=== PATIENT | male | born 1950 | race Caucasian/White ===

== ENCOUNTER 2017-12-25 07:41 | Day surgery (SDC) | payer OTHER ==
[2017-12-20 15:50] VITALS: BMI 30.7
[2017-12-25] MEDS ORDERED: CELECOXIB 200 MG CAPSULE PO ONE (07:57)
[2017-12-25] MEDS ORDERED: ROPIVICAINE 0.2%/MORPH PF/KETOROLAC - 51ML DISP.SYRINGE IA ONE ×2 (07:57→11:29)
[2017-12-25] MEDS ORDERED: CEFAZOLIN 1 GM/D5W 1 GRAM/50 ML BAG IVPB ONE (07:57)
[2017-12-25] MEDS ORDERED: oxyCODONE HCL 10 MG SUSTAINED ACTING TABLET PO ONE (07:57)
[2017-12-25] MEDS ORDERED: TRANEXAMIC ACID 1000 MG/10 ML VIAL IVPUSH ONE (07:57)
[2017-12-25] MEDS ORDERED: GABAPENTIN 300 MG CAPSULE (FP) PO ONE (07:57)
[2017-12-25] MEDS ORDERED: DEXAMETHASONE SOD PHOSPHATE/PF 10 MG/ML SDV ONE (08:53)
[2017-12-25] MEDS ORDERED: MIDAZOLAM HCL 2 MG/2 ML SINGLE DOSE VIAL ONE (08:53)
[2017-12-25] MEDS ORDERED: BUPIVACAINE HCL/PF (5 MG/ML) 30 ML VIAL IJ ONE (08:53)
[2017-12-25] MEDS ORDERED: ONDANSETRON 4 MG/2 ML VIAL IVPUSH PRN ×2 (09:34→12:07)
[2017-12-25] MEDS ORDERED: oxyCODONE HCL 5 MG TABLET PO PRN ×2 (09:34→09:35)
[2017-12-25] MEDS ORDERED: ACETAMINOPHEN 325 MG TABLET (FP) PO SCH (09:45)
[2017-12-25] MEDS ORDERED: LACTATED RINGERS SOLUTION 1,000 ML IV SCH ×2 (09:45→12:15)
[2017-12-25] MEDS ORDERED: TRANEXAMIC ACID 1000 MG/10 ML VIAL ONE (10:29)
[2017-12-25] MEDS ORDERED: DEXAMETHASONE SOD PHOSPHATE 4 MG/1 ML VIAL ONE (10:29)
[2017-12-25] MEDS ORDERED: ceFAZolin SODIUM 1 GM VIAL ONE (10:29)
[2017-12-25] MEDS ORDERED: ONDANSETRON 4 MG/2 ML VIAL ONE (10:29)
[2017-12-25] MEDS ORDERED: THROMBIN (BOVINE) 5,000 UNIT VIAL TP ONE (10:46)
[2017-12-25] MEDS ORDERED: GELATIN, ABSORBABLE 100 EACH SPONGE TP ONE (10:46)
[2017-12-25] MEDS ORDERED: MAG HYDROX/AL HYDROX/SIMETH 30 ML UNIT-DOSE CUP PO PRN (12:07)
--- NOTE | 2017-12-25 12:13 | OP ---
Operative Note - Note: Operative Date: 12/25/17 Pre-Operative Diagnosis: Right knee osteoarthritis Operation: Right partial knee arthroplasty Post-Operative Diagnosis: Same as Pre-op Surgeon: Brando Fisher Zipper Joiner: Fredo Manley Anesthesia: Spinal Estimated Blood Loss (mls): 100 Fluid Volume Replaced (mls): 1,000 Operative Report Dictated: Yes
--- NOTE | 2017-12-25 12:14 | SURG ---
Surgery Clinical Trial Leader Note Clinical Trial Leader: Fredo Manley PA-C Date of Service: 12/25/17 Diagnosis: Left knee osteoarthritis Procedure: Left knee partial arthroplasty I was present for the entirety of the operative procedure. For further detail, please refer to operative report.
--- NOTE | 2017-12-25 15:37 | SPEC ---
DATE OF OPERATION: DATE OF DICTATION: 12/25/2017 PREOPERATIVE DIAGNOSIS: Degenerative joint disease, left knee. POSTOPERATIVE DIAGNOSIS: Degenerative joint disease, left knee. PROCEDURE: Left medial unicompartmental knee replacement with robotic-assisted navigation (MAKOplasty) and patelloplasty. SURGICAL ATTENDING: Brando Fisher MD UTILITY BAG ASSEMBLER: Hawa Chavez ANESTHESIA: Regional and spinal. CLOSURE: Medial NATI components with a 4 femur, 5 tibia, and an 8 polyethylene; No. 1 Vicryl, fascia; 0 and 2-0, subcutaneous; 3-0 Monocryl subcuticular with skin glue for skin; 4-0 undyed Vicryl for pin sites. ESTIMATED BLOOD LOSS: Negligible. COMPLICATIONS: None. CONDITION: To recovery in stable condition. DESCRIPTION OF OPERATIVE PROCEDURE: Patient was taken to the operating room on December 25, 2017. Spinal and regional anesthesia was administered by the anesthesiologist. IV Kefzol and TXA were administered prophylactically prior to the case. A well-padded pneumatic tourniquet was placed on the left proximal thigh. The left lower extremity was prepped and draped in the usual sterile fashion. A 6- to 8-cm longitudinal incision over the medial side of the patella from mid patella to the tibial tubercle was incised and was deepened using Bovie cautery. An arthrotomy was then made just medial to the patellar tendon and the patella. Subperiosteal dissection was done on the anteromedial proximal tibia all the way back to the MCL. Partial fat pad excision was performed, exposing the medial compartment. Checkpoint was malleable at both the femur and the tibia. Using 2 stab incisions in the femur 1 handbreadth above the patella on the femur and 2 stab incisions 1 handbreadth below the tibial tubercle on the tibia, 2 threaded pins were drilled in parallel fashion from anterior to posterior, going through the proximal cortex and engaging the 2nd but not through the 2nd cortex. To these threaded pins were fastened navigation rays, 1 on the femur and 1 on the tibia. The knee was then registered with the navigation device with the center of the rotation of the hip, medial and lateral malleoli, and multiple points both on the femur and on the tibia. Excellent registration of less than 0.5 mm was obtained on both to ensure adequate registration. The navigation device ensured us to "pop the bubbles" both on the femur and the tibia and that was performed and passed registration. The knee was then thoroughly inspected to remove all osteophytes both on the femur and the tibia. Also, osteophytes on the trochlea and on the surface of the patella were removed as well. The knee was then stressed with valgus stress at 0, 30, 60, 90, and 120 degrees of flexion. This propagated a looseness/tightness graft. The virtual positions of the components were then optimized to ensure an excellent graft. The tracking also was optimized by manipulating the virtual position to ensure that the femoral component articulated with the central portion of the tibial component. The robot was then brought into the field and was registered. The robot was used to bur the bone on both the femur and the tibia as to the specifications of the components. The trial components were then applied on both the femur and the tibia with an appropriate polyethylene insert. The knee was taken through a range of motion and found to have full extension, full flexion, with excellent stability. Stressing the graft revealed an excellent looseness/tightness graft with the trial components in place. The trial components were removed. The knee was thoroughly irrigated with a copious amount of antibiotic irrigation. The real components were then cemented in using modern generation cement techniques with antibiotic cement and pressurization. After the cement was hardened, the knee was thoroughly inspected to remove out all excess cement. The real polyethylene insert was then clipped into place. Range of motion and stability were again assessed to be as they were with the trials. At this time, the pins and the checkpoints were removed. The knee was again thoroughly irrigated. The arthrotomy was closed with No. 1 Vicryl, 0 and 2-0 subcutaneous, and 3-0 Monocryl subcuticular with skin glue for the skin, 4-0 undyed Vicryl for the pin sites. Sterile pressure dressing was placed over the knee. Patient awakened from anesthesia and transferred to recovery in stable condition. No complications. Estimated blood loss negligible. X-rays postoperatively revealed excellent position of the components. Amanda [id number]
[2017-12-25] MEDS: CEFAZOLIN 1 GM/D5W 1 GRAM/50 ML BAG IVPB SCH (18:00)
[2017-12-25] MEDS: ACETAMINOPHEN 325 MG TABLET (FP) PO SCH (20:00)
[2017-12-25] MEDS: oxyCODONE HCL 10 MG SUSTAINED ACTING TABLET PO SCH (21:53)
[2017-12-25] MEDS: SENNOSIDES/DOCUSATE COMBO (SENNA PLUS) TABLET (UD) PO SCH (21:53)
[2017-12-25] MEDS: GABAPENTIN 300 MG CAPSULE (FP) PO SCH (21:53)
[2017-12-25] MEDS ORDERED: GABAPENTIN 300 MG CAPSULE (FP) PO SCH (22:00)
[2017-12-26] MEDS: CEFAZOLIN 1 GM/D5W 1 GRAM/50 ML BAG IVPB SCH (02:00)
[2017-12-26] MEDS: ACETAMINOPHEN 325 MG TABLET (FP) PO SCH ×3 (03:28→13:30)
[2017-12-26] MEDS ORDERED: ASPIRIN 325 MG TABLET PO SCH (08:00)
[2017-12-26 08:22] LABS: HEMATOCRIT 37.3 % (35.4-49); HEMOGLOBIN 13.1 GM/dl (11.7-16.9); MCHC 35.2 g/dl (32.0-35.9); MEAN CELL VOLUME 85.2 fl (80-96); MEAN PLT VOLUME 9.4 fl (7.5-11.1); PLATELET COUNT 197 K/MM3 (134-434); RBC 4.38 M/mm3 (4.00-5.60); RDW 13.4 % (11.9-15.9); WHITE BLOOD COUNT 13.4 K/mm3 (4.0-10.8)
[2017-12-26] MEDS: GABAPENTIN 300 MG CAPSULE (FP) PO SCH ×2 (08:28→10:36)
[2017-12-26 08:35] LABS: ANION GAP 4 (8-16); BLOOD UREA NITROGEN 22 mg/dl (7-18); CALCIUM 8.1 mg/dl (8.4-10.2); CHLORIDE 107 mmol/L (98-107); CO2 25 mmol/L (22-28); CREATININE 0.9 mg/dl (0.6-1.3); GLUCOSE,RANDOM 89 mg/dl (74-106); POTASSIUM 4.4 mmol/L (3.5-5.1); SODIUM 136 mmol/L (136-145)
--- NOTE | 2017-12-26 09:36 | PN ---
Progress Note (short form) - Note Progress Note: Anesthesia Postop 67 yo male POD#1 s/p partial knee replacement under spinal anesthesia with peripheral nerve blocks. Doing well. Actively participating in PT. Ambulating. Tolerating PO. Pain adequately controlled. Motor function intact. VSS, Afebrile Encouraged IS. No anesthetic complications. Continue current care.
[2017-12-26] MEDS ORDERED: COLCHICINE 0.6 MG TABLET (FP) PO SCH (10:00)
[2017-12-26] MEDS ORDERED: MULTIVITAMINS (DAILY MVI) TABLET (FP) PO SCH (10:00)
[2017-12-26] MEDS ORDERED: PANTOPRAZOLE 40 MG TABLET (FP) PO SCH (10:00)
[2017-12-26] MEDS ORDERED: VALSARTAN 160 MG TABLET (UD) PO SCH (10:00)
[2017-12-26] MEDS: SENNOSIDES/DOCUSATE COMBO (SENNA PLUS) TABLET (UD) PO SCH (10:36)
[2017-12-26] MEDS: oxyCODONE HCL 10 MG SUSTAINED ACTING TABLET PO SCH (10:44)
--- NOTE | 2017-12-26 12:35 | PN ---
Progress Note (short form) - Note Progress Note: AVSS COMFORTABLE BANDAGES DRY AND INTACT CALF SOFT AND NT NVI AROM 0-90 + STRAIGHT LEG RAISE ABILITY HCT=WNL IMP: DOING WELL PLAN: PT, OOB, DC TODAY
[2017-12-26 14:34] VITALS: BP 102/48; PULSE 68; TEMP 97.7
== END 2017-12-26 18:20 | disposition home health service (06) ==
LOC: FASUSAT 07:41 → FM/S 07:57 → FASUSAT 12-26 18:20
PROVIDERS: ATTEND Orthopaedic Surgery
PROC: 8E0YXBZ Computer Assisted Procedure of Lower Extremity (ICD-10-PCS; 2017-12-25)
PROC: 8E0Y0CZ Robotic Assisted Procedure of Lower Extremity, Open Approach (ICD-10-PCS; 2017-12-25)
PROC: 0SRD0L9 Replacement of Left Knee Joint with Medial Unicondylar Synthetic Substitute, Cemented, Open Approach (ICD-10-PCS; principal; 2017-12-25 09:30)
DX: M17.12 Unilateral primary osteoarthritis, left knee (principal)
CPT/HCPCS: 20985; 27446; C1776; S2900; 36415; 73560-TC-LT-FY; 80048; 85027; 94760; 97116-GP; 97162-GP

== ENCOUNTER 2018-03-26 06:43 | Inpatient (IN) | payer OTHER ==
[2018-03-19 13:46] VITALS: BMI 26.5
[2018-03-26] MEDS ORDERED: SODIUM CHLORIDE 0.9% P/F 10 ML VIAL IJ ONE ×2 (06:45→09:10)
[2018-03-26] MEDS ORDERED: MIDAZOLAM HCL 2 MG/2 ML SINGLE DOSE VIAL ONE ×3 (06:45→08:41)
[2018-03-26] MEDS ORDERED: BUPIVACAINE LIPOSOME/PF (EXPAREL) 266 MG/20 ML VIAL ONE (06:45)
[2018-03-26] MEDS ORDERED: GABAPENTIN 300 MG CAPSULE (FP) PO ONE (07:00)
[2018-03-26] MEDS ORDERED: oxyCODONE HCL 10 MG SUSTAINED ACTING TABLET PO ONE (07:00)
[2018-03-26] MEDS ORDERED: TRANEXAMIC ACID 1000 MG/10 ML VIAL IVPUSH ONE (07:00)
[2018-03-26] MEDS ORDERED: CEFAZOLIN 2 GM in DEXTROSE 5%-WATER - 50 ML IVPB ONE (07:00)
[2018-03-26] MEDS ORDERED: CELECOXIB 200 MG CAPSULE PO ONE (07:00)
[2018-03-26] MEDS ORDERED: SUCCINYLCHOLINE CHLORIDE 200 MG/10 ML VIAL ONE (07:08)
[2018-03-26] MEDS ORDERED: PROPOFOL 20 ML ONE ×3 (07:08)
[2018-03-26] MEDS ORDERED: BUPIVACAINE HCL/PF 0.5% (5MG/ML) 10 ML VIAL ONE (07:12)
[2018-03-26] MEDS ORDERED: ceFAZolin SODIUM 1 GM VIAL ONE ×2 (07:44→08:20)
[2018-03-26] MEDS ORDERED: VANCOMYCIN 1,000 MG VIAL (RESTRICTED TO ID ONLY) ONE (07:44)
--- NOTE | 2018-03-26 07:56 | HP ---
Satellite [facility] - Chief Complaint Chief Complaint: right knee pain - Past Medical History Allergies/Adverse Reactions: Allergies Allergy/AdvReac Type Severity Reaction Status Date / Time No Known Allergies Allergy Verified 03/26/18 07:05 - Current Medications Current Medications: Home Medications Medication Instructions Recorded Aspirin Coated [Ecotrin -] 81 mg PO DAILY 03/19/18 Ferrous Sulfate 325 mg PO DAILY 03/19/18 Furosemide [Lasix] 20 mg PO PRN PRN 03/19/18 Losartan Potassium 100 mg PO DAILY 03/19/18 Satellite Physical Exam - Physical Examination Vital Signs: Vital Signs Period Temp Pulse Resp BP Sys/Sheppard Pulse Ox Last 24 Hr 98.4 F 84 16 159/97 97 General Appearance: Well Nourished, Well Developed, Alert & Oriented x3 ENT: Clear Lung: Normal air movement Heart: Regular rate & rhythm Extremities: Other (right knee- + swelling, + ttp, decr rom, nvi xrays show grade 4 tricompartmental djd) Neurological: Intact, Alert, Oriented Satellite Impression/Plan - Impression/Plan Impression: right knee djd Operative Procedure: right bright tkr Date to be Performed: 03/26/18
[2018-03-26] MEDS ORDERED: TRANEXAMIC ACID 1000 MG/10 ML VIAL ONE ×2 (08:20)
[2018-03-26] MEDS ORDERED: ONDANSETRON 4 MG/2 ML VIAL ONE (08:29)
[2018-03-26] MEDS ORDERED: DEXAMETHASONE SOD PHOSPHATE 4 MG/1 ML VIAL ONE (08:29)
[2018-03-26] MEDS ORDERED: PATIENT'S OWN MEDICATION (NON-FORMULARY) (Ferrous Sulfate [Ferrous Sulfate] 325 MG) PO SCH (10:00)
[2018-03-26] MEDS ORDERED: PATIENT'S OWN MEDICATION (NON-FORMULARY) (Losartan Potassium [Losartan Potassium] 100 MG) PO SCH (10:00)
[2018-03-26] MEDS ORDERED: MAGNESIUM HYDROX 2400MG/30ML ORAL SUSPENSION 30 ML CUP PO PRN (10:00)
[2018-03-26] MEDS ORDERED: FUROSEMIDE 20 MG TABLET (FP) PO PRN (10:00)
[2018-03-26] MEDS ORDERED: MAG HYDROX/AL HYDROX/SIMETH 30 ML UNIT-DOSE CUP PO PRN (10:00)
[2018-03-26] MEDS ORDERED: ONDANSETRON 4 MG/2 ML VIAL IVPUSH PRN ×2 (10:00→10:39)
[2018-03-26] MEDS ORDERED: LACTATED RINGERS SOLUTION 1,000 ML IV SCH (10:00)
--- NOTE | 2018-03-26 10:02 | OP ---
Operative Note - Note: Operative Date: 03/26/18 (evaristo) Pre-Operative Diagnosis: right knee djd Operation: right bright tkr Post-Operative Diagnosis: Same as Pre-op Surgeon: Brando Fisher Documentation Specialist: Vipin Pineda Anesthesiologist/DESIGN/ANIMATION INSTRUCTOR: Agustin Ac Anesthesia: Spinal, Local Specimens Removed: bone fragments Estimated Blood Loss (mls): 150 Operative Report Dictated: Yes
[2018-03-26] MEDS ORDERED: PROMETHAZINE HCL 25 MG/1 ML VIAL IVPUSH PRN (10:39)
[2018-03-26] MEDS ORDERED: oxyCODONE HCL 5 MG TABLET PO PRN (10:39)
[2018-03-26] MEDS ORDERED: ACETAMINOPHEN 325 MG TABLET (FP) ONE (10:44)
[2018-03-26] MEDS ORDERED: ACETAMINOPHEN 325 MG TABLET (FP) PO ONE (10:51)
[2018-03-26] MEDS: ACETAMINOPHEN 325 MG TABLET (FP) PO SCH ×2 (12:55→18:14)
--- NOTE | 2018-03-26 13:38 | SPEC ---
DATE OF OPERATION: 03/26/2018 PREOPERATIVE DIAGNOSIS: Degenerative joint disease, right knee. POSTOPERATIVE DIAGNOSIS: Degenerative joint disease, right knee. PROCEDURE: Right total knee replacement with robotic-assisted navigation (MAKOplasty). SURGICAL ATTENDING: Brando Fisher MD BOTTLE CAPPING MACHINE OPERATOR: KLEVER Guerrero ANESTHESIA: Regional and spinal. CLOSURE: A Press-Fit Triathlon knee system with a 4 femur, 5 tibia, a 35 patella; 9 polyethylene, No. 1 Vicryl fascia; 0 and 2-0 for subcutaneous; and 3-0 Monocryl subcuticular with skin glue for skin; 4-0 undyed Vicryl for pin sites. ESTIMATED BLOOD LOSS: Less than 100 mL. COMPLICATIONS: None. CONDITION: To recovery room in stable condition. DESCRIPTION OF OPERATIVE PROCEDURE: Patient was taken to the operating room on March 26, 2018. Regional and spinal anesthesia was administered by the anesthesiologist. IV Kefzol was administered prophylactically prior to the case as well as TXA. The right lower extremity was prepped and draped in the usual sterile fashion. The midline 10- to 12-cm longitudinal incision was made. Hemostasis was achieved with Bovie cautery. Sharp dissection was carried down to the extensor mechanism which was perform the procedure. Medial parapatellar arthrotomy was then performed, leaving a cuff of tissue for later closure. The patella was inverted and the knee was flexed up. The fat pad was excised. Subperiosteal dissection was done on the anteromedial proximal tibia until the knee was able to be brought forward. This was facilitated by taking the ACL, PCL and medial and lateral menisci. Checkpoints were placed in both the femur and in the tibia. Two parallel threaded pins were drilled superior to the knee joint through the already made incision from anterior to posterior just going through the anterior cortex but just engaging but not going through the posterior cortex. Two threaded pins were drilled through 2 small stab incisions in parallel fashion 1 handbreadth below the tibial tubercle through the anterior cortex of the tibia and engaging but not going through the posterior cortex. Both sets of pins were attached to navigation arrays for the NATI system. The knee was then registered with the navigation system with center of rotation of the hip, medial and lateral malleoli and multiple sites both on the tibia and on the femur. Confirmation of excellent registration was confirmed by "popping the bubbles." At this time, the knee was thoroughly inspected to remove all osteophytes around the knee. The knee was then tensioned in varus/valgus at both full extension and at 90 degrees of flexion to ascertain our gaps. The virtual position of the components was optimized to ensure equal gaps throughout the range of motion. Once this was performed, the robot was brought into the field, was registered. The bone was cut as per the specifications on both the tibia and on the femur. The box cuts were then made as well. Excellent trial stability was obtained on the femur. The tibial baseplate was allowed to "find itself" and then was clipped into place. Confirmation of excellent external rotation of that component was confirmed by the navigation device as well.The patella was calibered for thickness and cut at the appropriate level. The appropriate lollipop was used to drill 3 holes in the patella and a trial asymmetric patellar button was applied. The knee was taken through a range of motion and found to have excellent stability from full extension to full flexion with excellent tracking of the patella. The trial components were then removed. The lug holes were drilled in the femur. The cementless keel was punched in the tibia. The real Press-Fit components were malleted into place, first with the tibia and then with the femur, and then the patella was crimped into place as well. The real polyethylene liner was then clipped into place. Range of motion, stability and tracking were as described earlier. The knee was thoroughly irrigated with copious amounts of irrigation. Vancomycin powder was placed inside the joint. The medial parapatellar arthrotomy was then closed using No. 1 Vicryl interrupted suture. Post closure of the arthrotomy, the knee was taken through a range of motion and found to have no undue tension on the repair. The subcutaneous was then pulse antibiotic irrigated, closed with 0 and 2-0 Vicryl and 3-0 Monocryl subcuticular with skin glue for the skin. Prior to closure, the checkpoints were removed as were the threaded pins. The tibial pin sites were closed with 4-0 undyed Vicryl. A sterile pressure Aquacel dressing was applied. No tourniquet was used during the case. The total blood loss was approximately 100 mL. No complication. Patient was transferred to recovery in stable condition. Amanda [id number]
[2018-03-26] MEDS: oxyCODONE HCL 5 MG TABLET PO PRN (15:13)
[2018-03-26] MEDS: CEFAZOLIN 2 GM/D5W 2 GM/50 ML ML IVPB SCH (15:13)
[2018-03-26] MEDS: SENNOSIDES/DOCUSATE COMBO (SENNA PLUS) TABLET (UD) PO SCH ×2 (18:13→21:35)
[2018-03-26] MEDS: PANTOPRAZOLE 40 MG TABLET (FP) PO SCH (18:13)
[2018-03-26] MEDS: MULTIVITAMINS (DAILY MVI) TABLET (FP) PO SCH (18:13)
[2018-03-26] MEDS: oxyCODONE HCL 10 MG SUSTAINED ACTING TABLET PO SCH (21:36)
[2018-03-27] MEDS: CEFAZOLIN 2 GM/D5W 2 GM/50 ML ML IVPB SCH (00:42)
[2018-03-27] MEDS: ACETAMINOPHEN 325 MG TABLET (FP) PO SCH ×4 (00:43→17:22)
[2018-03-27] MEDS: oxyCODONE HCL 5 MG TABLET PO PRN ×5 (00:46→21:15)
[2018-03-27] MEDS: ASPIRIN 325 MG TABLET PO SCH (08:00)
[2018-03-27 08:24] LABS: HEMATOCRIT 34.5 % (35.4-49); HEMOGLOBIN 11.2 GM/dl (11.7-16.9); MCH 28.3 pg (25.7-33.7); MCHC 32.5 g/dl (32.0-35.9); MEAN PLT VOLUME 9.2 fl (7.5-11.1); PLATELET COUNT 189 K/MM3 (134-434); RBC 3.96 M/mm3 (4.00-5.60); RDW 14.1 % (11.9-15.9)
--- NOTE | 2018-03-27 10:11 | PN ---
Progress Note (short form) - Note Progress Note: Ortho Pt seen and examined s/p right bright tkr pod #1 Selected Entries 03/26/18 21:57 Temperature 98.8 F Pulse Rate 80 Respiratory 18 Rate Blood Pressure 121/59 L Laboratory Tests 03/27/18 07:05 WBC 8.0 Hgb 11.2 L Hct 34.5 L Plt Count 189 dressing c/d/i, calf soft, nt rom 0-30, nvi a/p PT dvt ppx pain control d/c home tomorrow if stable
[2018-03-27] MEDS: PANTOPRAZOLE 40 MG TABLET (FP) PO SCH (10:19)
[2018-03-27] MEDS: MULTIVITAMINS (DAILY MVI) TABLET (FP) PO SCH (10:19)
[2018-03-27] MEDS: SENNOSIDES/DOCUSATE COMBO (SENNA PLUS) TABLET (UD) PO SCH ×2 (10:19→21:14)
[2018-03-27] MEDS: LOSARTAN POTASSIUM 50 MG TABLET (FP) PO SCH (10:19)
[2018-03-27] MEDS: FERROUS SO4 325 MG TABLET (FP) PO SCH (10:19)
[2018-03-27] MEDS: oxyCODONE HCL 10 MG SUSTAINED ACTING TABLET PO SCH ×2 (10:20→21:14)
[2018-03-28] MEDS: ACETAMINOPHEN 325 MG TABLET (FP) PO SCH ×4 (00:25→17:38)
[2018-03-28] MEDS: oxyCODONE HCL 5 MG TABLET PO PRN ×2 (05:58→21:53)
[2018-03-28 08:09] LABS: HEMATOCRIT 32.3 % (35.4-49); HEMOGLOBIN 11.4 GM/dl (11.7-16.9); MCH 30.5 pg (25.7-33.7); MCHC 35.2 g/dl (32.0-35.9); MEAN CELL VOLUME 86.6 fl (80-96); MEAN PLT VOLUME 9.4 fl (7.5-11.1); PLATELET COUNT 168 K/MM3 (134-434); RBC 3.73 M/mm3 (4.00-5.60); RDW 14.1 % (11.9-15.9); WHITE BLOOD COUNT 8.1 K/mm3 (4.0-10.8)
--- NOTE | 2018-03-28 08:23 | PN ---
Progress Note (short form) - Note Progress Note: Ortho Pt seen and examined s/p right bright tkr pod #2 Selected Entries 03/28/18 06:00 Temperature 98.4 F Pulse Rate 88 Respiratory 18 Rate Blood Pressure 145/56 L Laboratory Tests 03/28/18 07:37 WBC Pending Hgb Pending Hct Pending Plt Count Pending dressing c/d/i, calf soft, nt rom 0-30, nvi a/p PT dvt ppx pain control d/c home tomorrow if stable
[2018-03-28] MEDS: ASPIRIN 325 MG TABLET PO SCH (08:24)
[2018-03-28] MEDS: SENNOSIDES/DOCUSATE COMBO (SENNA PLUS) TABLET (UD) PO SCH ×2 (09:12→21:54)
[2018-03-28] MEDS: FERROUS SO4 325 MG TABLET (FP) PO SCH (09:12)
[2018-03-28] MEDS: PANTOPRAZOLE 40 MG TABLET (FP) PO SCH (09:12)
[2018-03-28] MEDS: oxyCODONE HCL 10 MG SUSTAINED ACTING TABLET PO SCH ×2 (09:12→21:53)
[2018-03-28] MEDS: MULTIVITAMINS (DAILY MVI) TABLET (FP) PO SCH (09:12)
[2018-03-28] MEDS: LOSARTAN POTASSIUM 50 MG TABLET (FP) PO SCH (09:12)
--- NOTE | 2018-03-28 16:22 | PATH ---
Surgical Pathology Report Patient Name: ANDRES RAZA Med. Rec. #: [id number] /Age/Gender: 1950 (Age: 67) / M Account: [id number] Location: [facility] MED-SURG Taken: 03/26/2018 Received: 03/26/2018 Reported: 03/28/2018 Physicians: Brando Fisher M.D. Specimen(s) Received BONE FRAGMENTS Clinical History Osteoarthritis right knee Final Diagnosis BONE, KNEE, RIGHT, TOTAL KNEE REPLACEMENT MAKOPLASTY: BONE WITH DEGENERATIVE JOINT DISEASE, FIBROADIPOSE TISSUE, AND REACTIVE SYNOVIUM. Electronically Signed Pricila Abdi M.D. Gross Description Received in formalin labeled "bone right knee," is a 12.0 x 9.5 x 1.7 cm aggregate of multiple portions of bone and soft tissue. The tibial plateau measures 7.8 x 5.1 x 1.3 cm. There is a 1.7 cm in greatest dimension area of eburnation present. The remaining articular surfaces are cabello-yellow and diffusely granular. The underlying trabecular bone is yellow and hard. Teaching Assistant sections are submitted in one cassette, following decalcification. /03/27/2018 saudi03/27/2018
[2018-03-29] MEDS: oxyCODONE HCL 5 MG TABLET PO PRN (06:12)
[2018-03-29] MEDS: ACETAMINOPHEN 325 MG TABLET (FP) PO SCH ×3 (06:13→09:25)
[2018-03-29 06:43] VITALS: BP 125/66; PULSE 100; TEMP 100.5
[2018-03-29] MEDS: SENNOSIDES/DOCUSATE COMBO (SENNA PLUS) TABLET (UD) PO SCH (09:24)
[2018-03-29] MEDS: LOSARTAN POTASSIUM 50 MG TABLET (FP) PO SCH (09:24)
[2018-03-29] MEDS: FERROUS SO4 325 MG TABLET (FP) PO SCH (09:25)
[2018-03-29] MEDS: MULTIVITAMINS (DAILY MVI) TABLET (FP) PO SCH (09:25)
[2018-03-29] MEDS: PANTOPRAZOLE 40 MG TABLET (FP) PO SCH (09:25)
[2018-03-29] MEDS: oxyCODONE HCL 10 MG SUSTAINED ACTING TABLET PO SCH (09:25)
[2018-03-29] MEDS: ASPIRIN 325 MG TABLET PO SCH (09:25)
--- NOTE | 2018-03-29 09:52 | DS ---
Physical Examination Vital Signs: Vital Signs Temperature 100.5 F H 03/29/18 06:00 Pulse Rate 100 H 03/29/18 06:00 Respiratory Rate 18 03/29/18 06:00 Blood Pressure 125/66 03/29/18 06:00 O2 Sat by Pulse Oximetry (%) 98 03/29/18 06:00 Labs: CBC, BMP 03/28/18 07:37 Discharge Summary Reason For Visit: OSTEOARTHRITIS Procedures: Principal: right tkr Hospital Course: admitted for elective right bright tkr, uneventful post-op, stable for d/c Condition: Good - Instructions Diet, Activity, Other Instructions: Post-op Instructions-Total Knee Replacement Call the office for a follow-up appointment in 1 week - [phone] Aspirin 325mg daily for 6 weeks. Pain medication was sent into your pharmacy. Apply Graduated Compression Stockings (TEDs) to both lower extremities- remove daily for hygiene ONLY Apply Sequential Compression Device (SCDs) to both Lower extremities remove for PT and hygiene ONLY Apply cold packs to affected area for 15 minutes every 2 hours. Physical Therapist will come to your home for the first 5 days. You will be set up with outpatient PT at your first post-operative visit. Patient may ambulate as tolerated-encourage self care (at least every 2-3 hours while awake) with walker or cane Maintain Aquacel (waterproof) dressing to operative wound (will be removed by surgeon at first office visit) Shower with Aquacel dressing in place-if Aquacel integrity compromised, remove and apply dry sterile dressing and notify Orthopedist. DO NOT SHOWER unless Orthopedists approves without Aquacel dressing CONTACT THE OFFICE FOR ANY CHANGE IN YOUR CONDITION (for example-fever greater than 102 degrees, excessive bleeding from operative site, purulent drainage, severe swelling or pain) GO TO THE EMERGENCY ROOM IF THERE IS A MEDICAL EMERGENCY Knee Precautions: * Keep a rolled towel under affected heel while in bed or chair (to keep knee in extension) * Keep affected leg elevated except during mealtimes * DO NOT PLACE PILLOW UNDER AFFECTED KNEE * If you have any questions, please do not hesitate to call the office - . Referrals: Brando Fisher MD [Staff Physician] - Disposition: VNS/HOME HEALTH CARE - Home Medications Comprehensive Discharge Medication List: Ambulatory Orders Ferrous Sulfate 325 mg PO DAILY 03/19/18 Furosemide [Lasix] 20 mg PO PRN PRN 03/19/18 Losartan Potassium 100 mg PO DAILY 03/19/18 Aspirin [ASA -] 325 mg PO DAILY@0800 tablet 03/26/18 Oxycodone HCl/Acetaminophen [Percocet 5-325 mg Tablet -] 1 - 2 tab PO Q6H #50 tab MDD 8 03/26/18
--- NOTE | 2018-03-29 09:52 | PN ---
Progress Note (short form) - Note Progress Note: Ortho Pt seen and examined s/p right bright tkr pod #3 Selected Entries 03/29/18 06:00 Temperature 100.5 F H Pulse Rate 100 H Respiratory 18 Rate Blood Pressure 125/66 Laboratory Tests 03/28/18 07:37 WBC 8.1 Hgb 11.4 L Hct 32.3 L Plt Count 168 dressing c/d/i, calf soft, nt rom 0-40, nvi a/p PT dvt ppx pain control d/c home today f/u in 1 week
== END 2018-03-29 12:25 | disposition home health service (06) | DRG 470 ==
LOC: FM/S 06:43
PROVIDERS: ADMIT Orthopaedic Surgery; ATTEND Orthopaedic Surgery
PROC: 8E0Y0CZ Robotic Assisted Procedure of Lower Extremity, Open Approach (ICD-10-PCS; 2018-03-26)
PROC: 0SRC0JA Replacement of Right Knee Joint with Synthetic Substitute, Uncemented, Open Approach (ICD-10-PCS; principal; 2018-03-26 08:44)
DX: M17.11 Unilateral primary osteoarthritis, right knee (principal)
CPT/HCPCS: 36415; 73560-TC-RT-FY; 85027; 88305-TC; 88311-TC; 94760; 97116-GP; 97162-GP

== ENCOUNTER 2022-04-21 12:48 | Emergency (ER) | payer OTHER ==
[2022-04-21 13:07] VITALS: BP 145/68; PULSE 82; RESP 17; TEMP 98; BMI 32.5
== END 2022-04-21 13:25 | disposition home or self-care (01) ==
LOC: JER 12:48
DX: J06.9 Acute upper respiratory infection, unspecified (principal)
CPT/HCPCS: 0241U-QW; 99283-25

== ENCOUNTER 2024-09-19 06:17 | Day surgery (SDC) | payer OTHER ==
[2024-09-16 13:21] VITALS: BMI 25.8
[2024-09-19 09:19] VITALS: TEMP 98
[2024-09-19 11:24] VITALS: RESP 18
[2024-09-19 11:45] VITALS: BP 163/71
[2024-09-19 12:11] VITALS: PULSE 60
== END 2024-09-19 12:11 | disposition home or self-care (01) ==
LOC: JASU-ENDO 06:17
PROVIDERS: ATTEND Student in an Organized Health Care Education/Training Program
PROC: 0DBK8ZX Excision of Ascending Colon, Via Natural or Artificial Opening Endoscopic, Diagnostic (ICD-10-PCS; 2024-09-19)
PROC: 0DBL8ZX Excision of Transverse Colon, Via Natural or Artificial Opening Endoscopic, Diagnostic (ICD-10-PCS; principal; 2024-09-19 09:30)
DX: D12.3 Benign neoplasm of transverse colon (principal); D12.2 Benign neoplasm of ascending colon; D64.9 Anemia, unspecified
CPT/HCPCS: 88305-TC

== ENCOUNTER 2024-10-24 06:33 | Day surgery (SDC) | payer OTHER ==
[2024-10-23 12:07] VITALS: BMI 25.8
[2024-10-24 11:08] VITALS: TEMP 98
[2024-10-24 11:10] VITALS: RESP 18
[2024-10-24 11:44] VITALS: BP 160/73; PULSE 68
== END 2024-10-24 11:45 | disposition home or self-care (01) ==
LOC: JASU-ENDO 06:33
PROVIDERS: ATTEND Student in an Organized Health Care Education/Training Program
PROC: 0DB68ZX Excision of Stomach, Via Natural or Artificial Opening Endoscopic, Diagnostic (ICD-10-PCS; principal; 2024-10-24 10:30)
DX: K29.50 Unspecified chronic gastritis without bleeding (principal); B96.81 Helicobacter pylori [H. pylori] as the cause of diseases classified elsewhere; K31.84 Gastroparesis
CPT/HCPCS: 88305-TC; 88342-TC